=== PATIENT | male | born 1965 | race Caucasian/White ===

== ENCOUNTER 2016-10-13 08:57 | Emergency (ER) | payer MEDICARE, OTHER | END 2016-10-13 10:37 | disposition home or self-care (01) | LOC: ER 08:57 | DX: J06.9 Acute upper respiratory infection, unspecified (principal); R05 Cough; Z79.899 Other long term (current) drug therapy; Z79.4 Long term (current) use of insulin; J45.909 Unspecified asthma, uncomplicated; R68.89 Other general symptoms and signs | CPT/HCPCS: 99282; 99283 ==

== ENCOUNTER 2016-11-16 11:29 | Emergency (ER) | payer MEDICARE, OTHER | END 2016-11-16 16:14 | disposition home or self-care (01) | LOC: ER 11:29 | DX: J32.9 Chronic sinusitis, unspecified (principal); J44.9 Chronic obstructive pulmonary disease, unspecified; K21.9 Gastro-esophageal reflux disease without esophagitis; E11.9 Type 2 diabetes mellitus without complications; I10 Essential (primary) hypertension; Z79.4 Long term (current) use of insulin; Z79.899 Other long term (current) drug therapy; Z88.8 Allergy status to other drugs, medicaments and biological substances | CPT/HCPCS: 70486; 71020; 99283; 99283-25 ==

== ENCOUNTER 2017-02-08 14:02 | Emergency (ER) | payer MEDICARE, OTHER | END 2017-02-08 14:30 | disposition home or self-care (01) | LOC: ER 14:02 | DX: R05 Cough (principal); I10 Essential (primary) hypertension; E66.01 Morbid (severe) obesity due to excess calories; Z79.899 Other long term (current) drug therapy; Z88.8 Allergy status to other drugs, medicaments and biological substances | CPT/HCPCS: 96365; 96367; 99284; 99284-25 ==